=== PATIENT | male | born 1950 | race Caucasian/White ===

== ENCOUNTER 2017-06-20 16:22 | Emergency (ER) | payer OTHER, MEDICARE ==
--- NOTE | 2017-06-20 18:33 | EDM.PDOC ---
ED HPI GENERAL MEDICAL PROBLEM - General Chief Complaint: General Stated Complaint: FISH HOOK PINKY L HAND Time Seen by Provider: 06/20/17 18:21 Source of Information: Reports: Patient History Limitations: Reports: No Limitations - History of Present Illness INITIAL COMMENTS - FREE TEXT/NARRATIVE: This gentleman comes in because of a fishhook in his left index finger. This happened at home while he was working in his cabin. Happened just a little while ago. He thinks his tetanus is up-to-date but he'll check with his doctor on Thursday. Left Hand Pain Score (Numeric/FACES): 1 - Related Data Allergies Allergy/AdvReac Type Severity Reaction Status Date / Time Penicillins Allergy Difficulty Verified 06/20/17 17:41 Breathing Sulfa (Sulfonamide Allergy Rash Verified 06/20/17 17:41 Antibiotics) Home Meds: Home Meds . [Unable to Verify Home Med List] 06/20/17 [History] Past Medical History HEENT History: Reports: Hard of Hearing, Impaired Vision Musculoskeletal History: Reports: Fracture Other Musculoskeletal History: fx arm r wrist Neurological History: Reports: Concussion Psychiatric History: Reports: Anxiety Hematologic History: Reports: Blood Transfusion(s) Oncologic (Cancer) History: Reports: Other (See Below) Other Oncologic History: skin ca - Infectious Disease History Infectious Disease History: Reports: Chicken Pox, Mumps - Past Surgical History HEENT Surgical History: Reports: Tonsillectomy Male Surgical History: Reports: Other (See Below) Other Male Surgeries/Procedures: bladder surgery Musculoskeletal Surgical History: Reports: Hip Replacement Dermatological Surgical History: Reports: Skin Biopsy Social & Family History - Tobacco Use Smoking Status *Q: Never Smoker Second Hand Smoke Exposure: No - Caffeine Use Caffeine Use: Reports: Coffee, Soda - Alcohol Use Days Per Week of Alcohol Use: 0 - Recreational Drug Use Recreational Drug Use: No ED ROS GENERAL - Review of Systems Review Of Systems: ROS reveals no pertinent complaints other than HPI. ED EXAM, GENERAL - Physical Exam Exam: See Below Exam Limited By: No Limitations General Appearance: Alert, WD/WN Extremities: Other (There is a small fishhook embedded in the pad of the left little finger.) Course - Vital Signs Last Recorded V/S: Last Vital Signs Temp 36.3 C 06/20/17 17:50 Pulse 73 06/20/17 17:50 Resp 16 06/20/17 17:50 BP 166/85 H 06/20/17 17:50 Pulse Ox 96 06/20/17 17:50 - Orders/Labs/Meds Meds: Medications Discontinued Medications Generic Name Dose Route Start Last Admin Trade Name Collin PRN Reason Stop Dose Admin Lidocaine HCl 5 ml 06/20/17 18:11 06/20/17 18:14 Xylocaine-Mpf 1% INJECT 06/20/17 18:12 5 ml ONETIME ONE Administration - Re-Assessments/Exams Free Text/Narrative Re-Assessment/Exam: 06/20/17 18:37 About 1/2 mL of 0.5% lidocaine was injected into the finger and the hook was removed with a simple snatch. It was cleaned with alcohol and a Band-Aid applied Departure - Departure Time of Disposition: 18:32 Disposition: Home, Self-Care 01 Condition: Good Clinical Impression: Fish hook injury of left hand - Discharge Information Referrals: PCP,None [Primary Care Provider] - Forms: ED Department Discharge Additional Instructions: Just wash with soap and water 2 or 3 times a day and cover with a Band-Aid. This should heal quickly. Check with your doctor about the tetanus shot as planned
== END 2017-06-20 18:45 | disposition home or self-care (01) ==
LOC: JP.ED 16:22
DX: S60.457A Superficial foreign body of left little finger, initial encounter (principal); Z88.0 Allergy status to penicillin; Z88.2 Allergy status to sulfonamides; W45.8XXA Other foreign body or object entering through skin, initial encounter
CPT/HCPCS: 99283